=== PATIENT | female | born 1940 | race Caucasian/White ===

== ENCOUNTER → 2017-01-10 | Outpatient (CLI) | payer MEDICARE, BC ==
[~2017-01-10] MED LIST: ADRENACLICK; ALLEGRA-D 24HR1 T24 PO; CALCIUM 600MG+D1 TAB PO; FISH OIL 1000MG1 CAP PO; FLEXERIL 1010 MG/TAB PO; NAPROSYN500 MG PO; NORCO 325 MG-51 TAB PO; ULTRAM 50MG TAB50 MG PO
== END ==
LOC: MC.RAD 10:41
DX: Z12.31 Encounter for screening mammogram for malignant neoplasm of breast (principal)

== ENCOUNTER 2017-07-01 08:12 | Emergency (ER) | payer MEDICARE, BC ==
[~2017-07-01] VITALS: Ht 167.6 cm; Wt 58.2 kg
[~2017-07-01 08:12] MED LIST changes: -ADRENACLICK; -ALLEGRA-D 24HR1 T24 PO; -CALCIUM 600MG+D1 TAB PO; -FISH OIL 1000MG1 CAP PO; -FLEXERIL 1010 MG/TAB PO; -NAPROSYN500 MG PO; -NORCO 325 MG-51 TAB PO
[2017-07-01 08:16] VITALS: TEMP 98
[2017-07-01] MEDS ORDERED: ADRENACLICK (08:18)
[2017-07-01 08:37] LABS: COLLECTION METHOD CLEAN CATCH
[2017-07-01] MEDS ORDERED: ALLEGRA-D 24HR1 T24 PO (08:41)
[2017-07-01 08:42] LABS: PH 7 (5-8); SQUAMOUS EPITHELIAL 0-2 /hpf; URINE APPEARANCE Clear; URINE BACTERIA None Seen /hpf; URINE BILIRUBIN Negative (NEGATIVE); URINE BLOOD Negative (NEGATIVE); URINE COLOR Yellow; URINE GLUCOSE Negative (NEGATIVE); URINE KETONE Negative (NEGATIVE); URINE LEUKOCYTE ESTERASE Negative (NEGATIVE); URINE NITRATE Negative (NEGATIVE); URINE PROTEIN(semi-quant) Negative (NEGATIVE); URINE RBC 0-2 /hpf; URINE UROBILINOGEN Negative (NEGATIVE)
[2017-07-01] MEDS ORDERED: CALCIUM 600MG+D1 TAB PO (08:42)
[2017-07-01 08:54] LABS: BASO % 0.2 % (0.0-2.0); EOS # 0.1 (0.0-0.7); EOS % 1.1 % (0-4.0); GRAN # 2.8 (1.4-6.5); GRAN % 62.8 % (42.2-75.2); HEMATOCRIT 41.9 % (37.0-47.0); HEMOGLOBIN 14.3 g/dl (12.5-16.0); LYMPH # 1.1 (1.2-3.4); MEAN CELL VOLUME 89 fl (80.0-100.0); MEAN CORPUSCULAR HEMOGLOBIN 30 pg (27.0-31.0); MEAN CORPUSCULAR HGB CONC 34 g/dl (33.0-37.0); MEAN PLATELET VOLUME 9.9 fl (7.4-10.4); MONO # 0.5 (0.1-0.6); MONO % 11.7 % (1.7-9.3); PLATELET COUNT 163 K/mm3 (130-400); REDCELL DISTRIBUTION WIDTH-CV 11.8 % (11.5-14.5)
[2017-07-01 09:04] LABS: ALBUMIN 4.3 gm/dL (3.5-5.0); BILIRUBIN,TOTAL 0.7 mg/dL (0.0-1.0); CALCIUM 9.7 mg/dL (8.4-10.2); CREATININE, serum 0.63 mg/dL (0.52-1.25); POTASSIUM 3.9 mmol/L (3.4-5.0); TOTAL PROTEIN 7.9 gm/dL (6.4-8.2)
[2017-07-01] MEDS ORDERED: FISH OIL 1000MG1 CAP PO (09:09)
[2017-07-01] MEDS ORDERED: NORCO 325 MG-51 TAB PO (09:35)
[2017-07-01] MEDS ORDERED: NAPROSYN500 MG PO (09:35)
[2017-07-01] MEDS ORDERED: FLEXERIL 1010 MG/TAB PO (09:35)
[2017-07-01 10:30] VITALS: BP 139/80; PULSE 67
== END 2017-07-01 10:30 | disposition home or self-care (01) ==
LOC: COL.ER 08:12
PROVIDERS: Emergency Medicine
DX: M54.16 Radiculopathy, lumbar region (principal); M32.9 Systemic lupus erythematosus, unspecified; Z90.710 Acquired absence of both cervix and uterus
CPT/HCPCS: J1885; J2060; J2405; J3010; J7030

== ENCOUNTER → 2018-02-22 | Outpatient (CLI) | payer MEDICARE, BC ==
[~2018-02-22] MED LIST changes: +ADRENACLICK; +ALLEGRA-D 24HR1 T24 PO; +CALCIUM 600MG+D1 TAB PO; +FISH OIL 1000MG1 CAP PO; +FLEXERIL 1010 MG/TAB PO; +NAPROSYN500 MG PO; +NORCO 325 MG-51 TAB PO
== END ==
LOC: MC.RAD 02-19 13:20
DX: Z12.31 Encounter for screening mammogram for malignant neoplasm of breast (principal)

== ENCOUNTER 2018-08-22 09:30 | Outpatient (RCR) | payer MEDICARE, BC | END 2018-09-09 | disposition home or self-care (01) | LOC: WSPT | DX: M75.52 Bursitis of left shoulder (principal) | CPT/HCPCS: G8984-GP; G8985-GP; G8986-GP ==

== ENCOUNTER → 2019-03-12 | Outpatient (CLI) | payer MEDICARE, BC | LOC: MC.RAD 10:45 | DX: Z12.31 Encounter for screening mammogram for malignant neoplasm of breast (principal) ==

== ENCOUNTER → 2020-04-30 | Outpatient (CLI) | payer MEDICARE, BC | LOC: MC.RAD 09:15 | DX: Z12.31 Encounter for screening mammogram for malignant neoplasm of breast (principal) ==

== ENCOUNTER 2021-03-03 09:43 | Observation (INO) | payer MEDICARE, BC ==
[~2021-03-03] VITALS: Ht 167.7 cm; Wt 54.2 kg
[2021-03-03 01:00] VITALS: BP 153/90; PULSE 71
[2021-03-03 10:26] LABS: ALANINE AMINOTRANSFERASE 22 U/L (4-34); ALKALINE PHOSPHATASE 65 U/L (50-136); ANION GAP 8 mmol/L (7-16); AST,SGOT 36 U/L (15-37); BILIRUBIN,TOTAL 0.3 mg/dL (0.0-1.0); BLOOD UREA NITROGEN 16 mg/dL (7-17); CALCIUM 9.3 mg/dL (8.4-10.2); CARBON DIOXIDE 25 mmol/L (22-30); CHLORIDE 103 mmol/L (98-107); CREATININE, serum 0.59 (0.52-1.25); GLUCOSE 110 mg/dL (74-106); LIPASE 202 U/L (23-300); POTASSIUM 3.4 mmol/L (3.4-5.0); SODIUM 137 mmol/L (137-145); TOTAL PROTEIN 7.9 gm/dL (6.4-8.2)
[2021-03-03 10:28] LABS: BASO % 0.4 % (0.0-2.0); EOS # 0.1 (0.0-0.7); GRAN # 2.1 (1.4-6.5); GRAN % 38.9 % (42.2-75.2); HEMATOCRIT 40.6 % (37.0-47.0); HEMOGLOBIN 13.9 g/dl (12.5-16.0); LYMPH # 2.3 (1.2-3.4); LYMPH % 42.9 % (20.0-51.0); MEAN CELL VOLUME 89 fl (80.0-100.0); MEAN CORPUSCULAR HEMOGLOBIN 31 pg (27.0-31.0); MEAN CORPUSCULAR HGB CONC 34 g/dl (33.0-37.0); MEAN PLATELET VOLUME 11.1 fl (7.4-10.4); MONO # 0.8 (0.1-0.6); MONO % 15.4 % (1.7-9.3); PLATELET COUNT 163 K/mm3 (130-400); RED BLOOD COUNT 4.56 M/mm3 (4.10-5.30)
[2021-03-03 10:40] LABS: INR 1.1 (0.8-3.0); PROTHROMBIN TIME 12.4 SECONDS (9.7-12.8)
[2021-03-03 10:40] LABS: C-REACTIVE PROTEIN < 0.5 mg/dL (0.0-0.9); TROPONIN-I < 0.012 ng/mL (0.000-0.035)
[2021-03-03 12:00] VITALS: BP 153/90; PULSE 71; TEMP 97.7
[2021-03-03] MEDS ORDERED: FOSAMAX 35MG35 MG PO (12:05)
[2021-03-03 13:30] VITALS: BP 175/109; PULSE 61
--- NOTE | 2021-03-03 14:57 | NUR ---
Admission assessment complete, alert/oriented, vital signs stable/ slightly hypertensive, denies any chest pain or discomfort, denies any SOA or resp.difficulty, denies feeling dizzy or lightheadaed, no dizziness or near syncope with ambulation or exertion, heart RRR/ SR on tele, distal pulses are palpable, lungs CTA/ no resp.difficulty noted, no neuro deficits noted/ receiver equal/ denies any visual changes or other neuro deficits, I have reivewed her home meds/ allergies/ pharmacy with her, I have notified hospitalist of her arrival to medical floor, she denies other needs or concerns at [facility]
[2021-03-03 16:09] VITALS: BP 120/65; PULSE 91; TEMP 98
[2021-03-03 20:03] VITALS: BP 146/70; PULSE 72; TEMP 98
--- NOTE | 2021-03-03 22:37 | NUR ---
ALERT AND OX4. DENIES SOA, DIZZY OR LIGHTHEADNESS. POTASSIUM BEING REPLACED. IV TO LT FA FLUSHED. BP WITHIN NORMAL RANGE. POC DISCUSSED. WILL BE NPO AT MIDNIGHT FOR LEXISCAN IN AM. PT V/U OF CARES. CALL LIGHT WI REACH.
--- NOTE | 2021-03-03 22:48 | NUR ---
ALERT AND OX4. DENIES SOA, CHEST PAIN OR DIZZY. PLAN OF CARE DISCUSSED. PM MEDS GIVEN. IV FLUSHED. NPO AT MIDNIGHT. NEEDS MET.
[2021-03-03 23:57] VITALS: BP 144/84; PULSE 61; TEMP 98.1
[2021-03-04] VITALS (9 sets, daily range): BP systolic 123–139; BP diastolic 61–86; PULSE 67–79; TEMP 97.9–98.1
[2021-03-04 03:29] LABS: COLLECTION METHOD CLEAN CATCH
[2021-03-04 03:35] LABS: MUCOUS Present /lpf; PH 8 (5-8); SQUAMOUS EPITHELIAL None Seen /hpf; URINE APPEARANCE Clear; URINE BACTERIA None Seen /hpf; URINE BILIRUBIN Negative (NEGATIVE); URINE BLOOD Negative (NEGATIVE); URINE COLOR Straw; URINE GLUCOSE Negative (NEGATIVE); URINE KETONE Negative (NEGATIVE); URINE LEUKOCYTE ESTERASE Negative (NEGATIVE); URINE NITRATE Negative (NEGATIVE); URINE PROTEIN(semi-quant) Negative (NEGATIVE); URINE RBC 0-2 /hpf; URINE UROBILINOGEN Negative (NEGATIVE)
--- NOTE | 2021-03-04 05:41 | NUR ---
RESTED THROUGH THE NIGHT WELL. DID C/O A FEW INCIDENTS OF FEELING LIGHT HEADED WITH AMBULATION. RESOLVED QUICKLY. UA SENT AND NEG. NEEDS MET.
[2021-03-04 06:03] LABS: BASO % 0.5 % (0.0-2.0); EOS # 0.1 (0.0-0.7); EOS % 1.5 % (0-4.0); GRAN # 2.1 (1.4-6.5); HEMATOCRIT 39.6 % (37.0-47.0); HEMOGLOBIN 13.2 g/dl (12.5-16.0); LYMPH # 1.2 (1.2-3.4); LYMPH % 31.1 % (20.0-51.0); MEAN CELL VOLUME 90 fl (80.0-100.0); MEAN CORPUSCULAR HEMOGLOBIN 30 pg (27.0-31.0); MEAN CORPUSCULAR HGB CONC 33 g/dl (33.0-37.0); MONO # 0.6 (0.1-0.6); MONO % 14.6 % (1.7-9.3); PLATELET COUNT 153 K/mm3 (130-400); RED BLOOD COUNT 4.42 M/mm3 (4.10-5.30)
[2021-03-04 06:18] LABS: ANION GAP 4 mmol/L (7-16); BLOOD UREA NITROGEN 15 mg/dL (7-17); CARBON DIOXIDE 27 mmol/L (22-30); CHLORIDE 105 mmol/L (98-107); CHOLESTEROL 149 mg/dL (120-200); CHOLESTEROL RISK RATIO 3.9; CREATININE, serum 0.52 (0.52-1.25); GLUCOSE 97 mg/dL (74-106); HDL CHOLESTEROL 38 mg/dL; LDL CHOLESTEROL 100 mg/dL; POTASSIUM 4.1 mmol/L (3.4-5.0); SODIUM 136 mmol/L (137-145); TRIGLYCERIDE 54 mg/dL
[2021-03-04 06:21] LABS: TROPONIN-I < 0.012 ng/mL (0.000-0.035)
--- NOTE | 2021-03-04 11:04 | NUR ---
Assessment completed, alert/oriented, vital signs stable, she did report some motion/activity induced dizziness this morning and felt unsteady on her feet, orthostatic VS check was normal, she is scheduled for Lexiscan this morning, hospitalist has also ordered a CT head and for PT to eval/tx for possible vertigo, patient denies any pain or discomfort otherwise, will continue to monitor
--- NOTE | 2021-03-04 12:57 | NUR ---
First visit from the furnace packer. No needs right now.
--- NOTE | 2021-03-04 14:12 | NUR ---
Truck Packer attended clinical rounds with the team. After rounds SW met with the patient to complete intake. The patient lives in [place] with her , Clemente. The patient denies DME use and is independent with ADLs. The patient's PCP is Dr. Hernández and patient receives medications from [facility]. The patient does not have advanced directives in the EMR but states they are complete and designate Clemente. PT is recommending OP PT. SW discussed PT's recommendation and she was agreeable to OP PT. The patient would like to use the therapy center [place]. SW attempted to contact [facility], left message. YEVGENIY collaborated the above information with the PA. *Discharge disposition: Home with spouse and OP PT
[2021-03-04] MEDS ORDERED: ANTIVERT 25MG25 MG PO (15:07)
--- NOTE | 2021-03-04 16:23 | NUR ---
Patient is dicharging home, discussed discharge orders, instructed to follow up with PCP as scheduled, instructed to see outpatient PT/OT for continued vertigo issues, script for Antivert sent to pharamcy for her, IV and tele removed, DIRECTOR DECISION SUPPORT escorted her out the door
== END 2021-03-04 16:27 | disposition home or self-care (01) ==
LOC: COL.ER 09:43 → MEDICAL 11:35
PROVIDERS: Emergency Medicine; ADMIT Hospitalist
DX: R55 Syncope and collapse (principal); R42 Dizziness and giddiness; R11.2 Nausea with vomiting, unspecified; R03.0 Elevated blood-pressure reading, without diagnosis of hypertension; M81.0 Age-related osteoporosis without current pathological fracture; J45.909 Unspecified asthma, uncomplicated; Z79.899 Other long term (current) drug therapy; Z87.39 Personal history of other diseases of the musculoskeletal system and connective tissue; Z88.0 Allergy status to penicillin; Z88.8 Allergy status to other drugs, medicaments and biological substances; Z88.2 Allergy status to sulfonamides; Z88.1 Allergy status to other antibiotic agents; Z83.6 Family history of other diseases of the respiratory system
CPT/HCPCS: A9500; G0378; J2785

== ENCOUNTER 2021-03-17 13:45 | Outpatient (RCR) | payer MEDICARE, BC ==
[~2021-03-17 13:45] MED LIST changes: +ANTIVERT 25MG25 MG PO; +FOSAMAX 35MG35 MG PO
== END 2021-06-08 | disposition home or self-care (01) ==
LOC: PT.GENESIS
DX: H81.10 Benign paroxysmal vertigo, unspecified ear (principal)

== ENCOUNTER 2021-10-06 15:15 | Outpatient (RCR) | payer MEDICARE, BC | END 2021-10-22 | disposition home or self-care (01) | LOC: PT.GENESIS | DX: H81.11 Benign paroxysmal vertigo, right ear (principal) ==

== ENCOUNTER → 2021-11-09 | Outpatient (CLI) | payer MEDICARE, BC | LOC: MC.RAD 11:00 | DX: Z12.31 Encounter for screening mammogram for malignant neoplasm of breast (principal) ==

== ENCOUNTER → 2021-12-16 | Outpatient (CLI) | payer MEDICARE, BC | LOC: COL.RAD 12-09 08:15 | DX: H81.11 Benign paroxysmal vertigo, right ear (principal) | CPT/HCPCS: A9575 ==

== ENCOUNTER 2022-10-07 11:00 | Outpatient (RCR) | payer MEDICARE, BC | END 2022-10-22 | disposition home or self-care (01) | LOC: PT.GENESIS | DX: R42 Dizziness and giddiness (principal) ==

== ENCOUNTER → 2024-03-27 | Outpatient (CLI) | payer MEDICARE, BC | LOC: MC.RAD 10:30 | DX: Z12.31 Encounter for screening mammogram for malignant neoplasm of breast (principal) ==